=== PATIENT | female | born 1965 | race Hispanic/Latino ===

== ENCOUNTER 2023-10-14 06:08 | Day surgery (SDC) | payer MEDICARE ==
[~2023-10-14] VITALS: Ht 154.9 cm; Wt 57.2 kg
[2023-10-14] VITALS (9 sets, daily range): BP systolic 77–155; BP diastolic 39–69; PULSE 60–70; RESP 14–18
[2023-10-14] MEDS ORDERED: SERT-438 PO (06:48)
[2023-10-14] MEDS ORDERED: CLOP75TA32 PO (06:48)
[2023-10-14] MEDS ORDERED: PROM25TA7 PO (06:48)
[2023-10-14] MEDS ORDERED: ATOR40TA69 PO (06:48)
[2023-10-14] MEDS ORDERED: METO-408 PO (06:48)
[2023-10-14] MEDS ORDERED: ASPI-1197 PO (06:48)
[2023-10-14] MEDS ORDERED: SEVE800T27 PO (06:48)
[2023-10-14] MEDS ORDERED: PANT40TA54 PO (06:48)
[2023-10-14] MEDS ORDERED: FOLI0.8T53 PO (06:48)
[2023-10-14] MEDS: 0.9% NACL 500ML IV.SOLN 500 ML IV ONE (06:49)
[2023-10-14] MEDS ORDERED: PROPOFOL 10 MG/ML 20ML VIAL IV ONE (07:02)
[2023-10-14] MEDS ORDERED: EPHEDRINE SULFATE 50 MG/ML AMPULE ONE (08:02)
== END 2023-10-14 09:35 | disposition home or self-care (01) ==
LOC: ENDO 06:08 → DAH 06:08 → ENDO 09:05
PROVIDERS: ATTEND Internal Medicine Gastroenterology
DX: K31.811 Angiodysplasia of stomach and duodenum with bleeding (principal); K74.60 Unspecified cirrhosis of liver; I85.10 Secondary esophageal varices without bleeding; I12.0 Hypertensive chronic kidney disease with stage 5 chronic kidney disease or end stage renal disease; D63.1 Anemia in chronic kidney disease; E11.22 Type 2 diabetes mellitus with diabetic chronic kidney disease; N18.6 End stage renal disease; Z90.49 Acquired absence of other specified parts of digestive tract; Z98.49 Cataract extraction status, unspecified eye; Z79.82 Long term (current) use of aspirin; Z79.899 Other long term (current) drug therapy
CPT/HCPCS: 43255; 84132; 36415; J7040; J3490; J2704; A4620; A4215; A4223; A7002; A4222; A4221; A4663; J7030; A4606

== ENCOUNTER 2023-11-18 07:32 | Day surgery (SDC) | payer MEDICARE ==
[~2023-11-18] VITALS: Ht 154.9 cm; Wt 57.2 kg
[2023-11-18] VITALS (14 sets, daily range): BP systolic 100–154; BP diastolic 46–63; PULSE 61–67; RESP 15–16; TEMP 96.6–97.9
[~2023-11-18 07:32] MED LIST: ASPI-1197 PO; ATOR40TA69 PO; CLOP75TA32 PO; FOLI0.8T53 PO; LACT10SO9 PO; METO-408 PO; PANT40TA54 PO; SERT-438 PO; SEVE800T27 PO
[2023-11-18] MEDS: 0.9% NACL 500ML IV.SOLN 500 ML IV ONE (08:34)
[2023-11-18] MEDS: DEXTROSE 50%-WATER 50 ML DISP.SYRIN IV ONE (09:01)
[2023-11-18] MEDS ORDERED: proPOFol 10 MG/ML 20ML VIAL IV ONE (09:29)
== END 2023-11-18 10:47 | disposition home or self-care (01) ==
LOC: DAH 07:32 → ENDO 07:32
PROVIDERS: ATTEND Internal Medicine Gastroenterology
DX: K31.811 Angiodysplasia of stomach and duodenum with bleeding (principal); K74.60 Unspecified cirrhosis of liver; I85.10 Secondary esophageal varices without bleeding; I12.0 Hypertensive chronic kidney disease with stage 5 chronic kidney disease or end stage renal disease; D63.1 Anemia in chronic kidney disease; E11.22 Type 2 diabetes mellitus with diabetic chronic kidney disease; N18.6 End stage renal disease; Z99.2 Dependence on renal dialysis; Z79.01 Long term (current) use of anticoagulants; Z79.82 Long term (current) use of aspirin; Z79.899 Other long term (current) drug therapy; Z98.890 Other specified postprocedural states
CPT/HCPCS: 43255; 82948 ×2; J7040; J7070; J2704; A4620; A4215 ×2; A4223; A4222; A4221; A4663; A4606; J3490